=== PATIENT | female | born 1965 | race Two or more races ===

== ENCOUNTER 2019-04-27 16:28 | Emergency (ER) | payer MEDICAID ==
[~2019-04-27] VITALS: Ht 152.4 cm; Wt 91.0 kg
[2019-04-27 16:59] VITALS: BP 134/87
[2019-04-27] MEDS ORDERED: DIPHENHYDRAMINE 50MG/ML VIAL IM ONE (20:15)
[2019-04-27] MEDS ORDERED: METHYLPREDNISOLONE SOD SUCC 125 MG/2 ML VIAL IM ONE (20:15)
[2019-04-27] MEDS ORDERED: FAMOTIDINE 20MG TABLET PO ONE (20:15)
== END 2019-04-27 21:30 | disposition left against medical advice (07) ==
LOC: ER 16:28
DX: L50.9 Urticaria, unspecified (principal); R10.9 Unspecified abdominal pain
CPT/HCPCS: 96374; 96375; 99283; J1200; J2930